=== PATIENT | male | born 1955 | race Two or more races ===

== ENCOUNTER 2019-01-04 09:55 | Day surgery (SDC) | payer MEDICARE, OTHER ==
[~2019-01-04] VITALS: Ht 177.8 cm; Wt 85.9 kg
[2019-01-04 10:35] VITALS: BP 183/93
[2019-01-04] MEDS ORDERED: SODIUM CHLORIDE 0.9% 1,000 ML IV SCH (10:38)
[2019-01-04] MEDS ORDERED: MIDAZOLAM 1 MG/ML, 5ML ONE (12:29)
[2019-01-04] MEDS ORDERED: FLUMAZENIL 0.1 MG/1 ML, 5ML ONE (12:29)
[2019-01-04] MEDS ORDERED: FENTANYL PF 100 MCG/2ML ONE (12:29)
[2019-01-04] MEDS ORDERED: NALOXONE 1 MG/ML, 2ML ONE (12:29)
== END 2019-01-04 15:00 | disposition home or self-care (01) ==
LOC: OUT 09:55
PROVIDERS: ATTEND Family Medicine
DX: R91.1 Solitary pulmonary nodule (principal); Z79.899 Other long term (current) drug therapy; Z86.14 Personal history of Methicillin resistant Staphylococcus aureus infection; Z88.0 Allergy status to penicillin
CPT/HCPCS: 32405; 71045; 77012; 82962; 88305; 99156; 99157; C2613; J2250; J3010; J7030; J2310

== ENCOUNTER 2019-01-13 10:23 | Day surgery (SDC) | payer MEDICARE, OTHER ==
[~2019-01-13] VITALS: Ht 177.8 cm; Wt 86.2 kg
[2019-01-13 11:01] VITALS: BP 177/97
[2019-01-13] MEDS ORDERED: SODIUM CHLORIDE 0.9% 1,000 ML IV SCH (11:30)
[2019-01-13] MEDS ORDERED: MIDAZOLAM 1 MG/ML, 5ML ONE ×2 (12:16)
[2019-01-13] MEDS ORDERED: FENTANYL PF 100 MCG/2ML ONE (12:16)
[2019-01-13] MEDS ORDERED: NALOXONE 1 MG/ML, 2ML ONE (12:17)
[2019-01-13] MEDS ORDERED: FLUMAZENIL 0.1 MG/1 ML, 5ML ONE (12:17)
== END 2019-01-13 15:50 | disposition home or self-care (01) ==
LOC: OUT 10:23
PROVIDERS: ATTEND Family Medicine
DX: C34.12 Malignant neoplasm of upper lobe, left bronchus or lung (principal); I10 Essential (primary) hypertension; F17.210 Nicotine dependence, cigarettes, uncomplicated; Z88.0 Allergy status to penicillin
CPT/HCPCS: 32405; 71046; 77012; 88305; 99156; 99157; J2250; J3010; J7030; 88341; 88342; J2310

== ENCOUNTER 2019-02-08 12:17 | Outpatient (CLI) | payer MEDICARE, OTHER | END 2019-02-08 23:59 | disposition home or self-care (01) | LOC: CARD 12:17 | PROVIDERS: ATTEND Thoracic Surgery (Cardiothoracic Vascular Surgery) | DX: C34.10 Malignant neoplasm of upper lobe, unspecified bronchus or lung (principal); J44.9 Chronic obstructive pulmonary disease, unspecified | CPT/HCPCS: 94060; 94726; 94729 ==

== ENCOUNTER 2019-02-26 09:05 | Outpatient (CLI) | payer MEDICARE, OTHER | END 2019-02-26 23:59 | disposition home or self-care (01) | LOC: STAR 09:05 | PROVIDERS: ATTEND Thoracic Surgery (Cardiothoracic Vascular Surgery) | DX: Z01.818 Encounter for other preprocedural examination (principal) | CPT/HCPCS: 36415; 80053; 85025; 93005 ==

== ENCOUNTER → 2020-04-17 | Outpatient (CLI) | payer MEDICARE, OTHER ==
[~2020-04-17] MED LIST: AMIO200T42 PO; ATOR40TA78 PO; ENOX80SY4 SQ; GLIP5TAB10 PO; INSU100I13 SQ-INSULIN; INSU100V13 SC; INSU100V5 SQ-INSULIN; LIDO10VI34 ENDO; LISI-170 PO; METO25TA35 PO
== END | disposition home or self-care (01) ==
LOC: RAD 09:35
PROVIDERS: ATTEND Internal Medicine Gastroenterology
DX: R13.12 Dysphagia, oropharyngeal phase (principal); E11.9 Type 2 diabetes mellitus without complications; I10 Essential (primary) hypertension; E78.00 Pure hypercholesterolemia, unspecified; I48.91 Unspecified atrial fibrillation; Z86.73 Personal history of transient ischemic attack (TIA), and cerebral infarction without residual deficits; Z87.01 Personal history of pneumonia (recurrent)
CPT/HCPCS: 74230